=== PATIENT | male | born 1960 | race Caucasian/White ===

== ENCOUNTER 2021-06-25 15:08 | Outpatient (CLI) | payer BC | END 2021-06-25 15:09 | disposition home or self-care (01) | LOC: BRENFP 15:08 | PROVIDERS: ATTEND Registered Nurse | DX: R05 Cough (principal); Z20.822 Contact with and (suspected) exposure to COVID-19; Z53.9 Procedure and treatment not carried out, unspecified reason | CPT/HCPCS: U0003; U0005 ==